=== PATIENT | female | born 1985 | race Two or more races ===

== ENCOUNTER → 2021-08-28 | Day surgery (SDC) | payer OTHER ==
[~2021-08-28] VITALS: Ht 165.1 cm; Wt 72.0 kg
[~2021-08-28] MED LIST: FERR-36 PO; HYDROmorphone 2 MG/ML INJ. IVP PRN; IV RINGERS,LACTATED 1000ML 1,000 ML IV SCH; LIDOCAINE 2% PF 5 ML VIAL. ONE; MORPHINE SULFATE 2 MG/ML INJ. IVP PRN; PROCHLORPERAZINE 10 MG/2 ML VIAL. IVP PRN; PROPOFOL 10 MG/ML (20ML) VIAL. IV ONE; ePHEDrine PF IN SALINE 50 MG/10 ML SYRINGE. IV ONE; fentaNYL PF VIAL 100 MCG/2 ML VIAL IVP PRN
[2021-08-28 06:31] VITALS: BP 113/74
[2021-08-28 07:50] VITALS: BP 110/63
--- NOTE | 2021-08-28 11:19 | CONS ---
DATE OF CONSULTATION: 08/28/2021 UPDATED HISTORY AND PHYSICAL REASON FOR CONSULTATION: Anemia and family history of colon cancer. HISTORY OF PRESENT ILLNESS: A 36-year-old female whose past medical history is significant for anemia, seen with hemoglobin as low as 11.1. There is a family history of colon cancer with her mother, who has passed at the age of 49. She denies any change in bowel habits, diarrhea, constipation, melena, hematochezia. Here today for further evaluation with endoscopy. Denies any dysphagia or odynophagia or significant heartburn. PAST MEDICAL HISTORY: Iron deficiency anemia. ALLERGIES: None. MEDICATIONS: Ferrous sulfate 325 mg daily. FAMILY HISTORY: Significant for colon cancer with her mother. SOCIAL HISTORY: She is a social drinker and former smoker. PAST SURGICAL HISTORY: Noncontributory. REVIEW OF SYSTEMS: Per records. PHYSICAL EXAMINATION: GENERAL: Reveals a well-developed, well-nourished female who is alert, cooperative, in no acute distress. VITAL SIGNS: Temperature 97.7, pulse 70, respirations 14. LUNGS: Clear. CARDIOVASCULAR: Reveals an S1, S2, without S3, S4 or appreciable murmur. ABDOMEN: Reveals a soft abdomen, normal bowel sounds, without appreciable hepatosplenomegaly. EXTREMITIES: Reveals no cyanosis, clubbing or edema. IMPRESSION AND PLAN: Iron-deficiency anemia, etiologies to be determined. Gynecologic losses including fibroids, menometrorrhagia, certainly leave the differential of colonic polyps malignancy, AVM, IBD, celiac and/or Vázquez's are in the differential as well. Therefore, I recommend upper endoscopy and colonoscopy. Risks and benefits of procedure have been discussed with the patient including risk of hemorrhage and perforation and she is willing to proceed at this time. [facility] [place]: Erendira TID: [id number] CC: Felicitas Morrison
--- NOTE | 2021-08-31 19:07 | PATHOLOGY ---
[facility] Accession Number: [id number] . 01 Material submitted: . rectum - RECTUM POLYP BIOPSY . 01 Clinical history: . ANEMIA EGD/COLONOSCOPY . 01 Diagnosis: Colonic mucosa "rectum polyp biopsy": - Tubular adenoma. - There is no evidence of high grade dysplasia or malignancy. (SHA/db; 08/31/2021) [facility] 08/31/2021 1548 Local . 01 Electronically signed: . David Nguyen MD, Pathologist NPI- [id number] . 01 Gross description: . Received in formalin labeled "Elizabeth Lopez, rectum polyp BX" is a fragment of howe-brown soft tissue measuring 0.4 x 0.3 x 0.1 cm. The specimen is submitted entirely in A1. ([facility] [place] 08/29/2021) [facility] 08/29/2021 1057 Local . 01 Pathologist provided ICD-10: D12.8 . 01 CPT . 974641 Specimen Comment: A courtesy copy of this report has been sent to [phone], [phone] Specimen Comment: [id number] Specimen Comment: Report sent to / DR POSEY Specimen Comment: A duplicate report has been generated due to demographic updates. Performed at: [address], [place], [place] [id number] MD David Nguyen MD Phone: [phone]
== END | disposition home or self-care (01) ==
LOC: ENDOS 06:11
PROVIDERS: ATTEND Internal Medicine Gastroenterology
DX: D50.9 Iron deficiency anemia, unspecified (principal); K64.0 First degree hemorrhoids; K29.50 Unspecified chronic gastritis without bleeding; D12.8 Benign neoplasm of rectum; K63.89 Other specified diseases of intestine; K31.89 Other diseases of stomach and duodenum; Z87.891 Personal history of nicotine dependence; Z79.899 Other long term (current) drug therapy; Z98.890 Other specified postprocedural states; Z80.0 Family history of malignant neoplasm of digestive organs; Z72.89 Other problems related to lifestyle
CPT/HCPCS: 43235; 45380; 81025; 88305; J2704